=== PATIENT | male | born 1970 ===

== ENCOUNTER 2020-09-29 05:45 | Day surgery (SDC) | payer OTHER ==
[2020-09-29] MEDS ORDERED: PERCOCET 5-3251 EACH PO (09:29)
[2020-09-29] MEDS ORDERED: COLACE100 MG PO (09:29)
== END 2020-09-29 14:55 | disposition home or self-care (01) ==
LOC: CIR.AMB 05:45
PROVIDERS: ATTEND Surgery
DX: K60.1 Chronic anal fissure (principal); Z20.822 Contact with and (suspected) exposure to COVID-19